=== PATIENT | male | born 1970 | race Two or more races ===

== ENCOUNTER 2022-04-17 16:27 | Emergency (ER) | payer SELFPAY ==
[~2022-04-17] VITALS: Ht 167.6 cm; Wt 72.6 kg
--- NOTE | 2022-04-17 16:35 | NUR ---
BIB FRIEND WITH LEFT ARM LACERATION, PT STATED HE DOES NOT KNOW HOW IT HAPPENED, DENIES SI INTENT. VITALS ARE WITHIN NORMAL LIMITS. AWAITING EVAL.
[2022-04-17] MEDS ORDERED: LIDOCAINE 1%-EPI 1:100,000 20 ML VIAL TP ONE (17:00)
[2022-04-17] MEDS ORDERED: CEPHALEXIN MONOHYDRATE 500 MG CAPSULE PO ONE ×2 (17:00→17:02)
[2022-04-17] MEDS ORDERED: HYDROCODONE/APAP 5/325MG TABLET PO ONE (17:00)
[2022-04-17] MEDS ORDERED: TDAP [DIPH/PERTUSSIS/TET] 0.5 ML VIAL IM ONE ×2 (17:00→17:02)
[2022-04-17] MEDS ORDERED: HYDROCODONE/APAP 5/325MG TABLET ONE (17:02)
--- NOTE | 2022-04-17 17:30 | NUR ---
[employer] DRIVER AT THE BEDSIDE
[2022-04-17] MEDS ORDERED: LIDOCAINE 1%-EPI 1:100,000 20 ML VIAL ONE (17:46)
--- NOTE | 2022-04-17 18:46 | NUR ---
CALLED [employer] PER DR PARKER REQUEST. WILL SEND OFFICER. NO ETA GIVEN.
[2022-04-17] MEDS ORDERED: NAPR-1009 PO (19:08)
[2022-04-17] MEDS ORDERED: CEPH500C2 PO (19:08)
[2022-04-17] MEDS ORDERED: HYDR-4209 PO (19:08)
--- NOTE | 2022-04-17 19:24 | NUR ---
[employer] AT BEDSIDE
--- NOTE | 2022-04-17 19:41 | NUR ---
Patient discharged to home in stable condition. Written and verbal after care instructions given. Patient verbalizes understanding of instruction. RX GIVEN
[2022-04-17 19:42] VITALS: BP 112/60
== END 2022-04-17 19:57 | disposition home or self-care (01) ==
LOC: ER 16:30
DX: S51.812A Laceration without foreign body of left forearm, initial encounter (principal); W01.0XXA Fall on same level from slipping, tripping and stumbling without subsequent striking against object, initial encounter; Y93.89 Activity, other specified; Y92.89 Other specified places as the place of occurrence of the external cause; Y99.8 Other external cause status
CPT/HCPCS: 99284; 12031; 90471; 90715; 73090; J3490